=== PATIENT | male | born 1980 | race Two or more races ===

== ENCOUNTER → 2017-10-17 | Outpatient (CLI) | payer MEDICAID ==
[~2017-10-17] MED LIST: FLOMAX 0.4MG C0.4 MG PO; FLOMAX0.4 MG PO; MECLIZINE25 MG PO; NAPROSYN 500MG500 MG PO; NOMEDS; NORCO 325 MG-51 TAB PO; PERCOCET 5/3251 EACH PO; PHENERGAN 25MG.25 M1 PO; ROBAXIN-750750 MG PO; TRAMADOL 50MG T50 MG PO
[2017-10-17 18:03] LABS: HEMOGLOBIN 14.9 g/dL (14.1-18.0); LYMPH # 1.7 K/mm3 (0.7-4.5)
[2017-10-17 19:01] LABS: BUN 10 mg/dL (7-18); GFR (ESTIMATED) 108 ML/MIN (>60)
[2017-10-19 07:40] LABS: HBsAg Screen Negative (Negative); Hep A Ab, IgM Negative (Negative); Hep B Core Ab, IgM Negative (Negative); Hep C Virus Ab <0.1 (0.0-0.9)
== END ==
LOC: LAB 16:34
PROVIDERS: Nurse Practitioner Family
DX: R20.2 Paresthesia of skin (principal); J01.01 Acute recurrent maxillary sinusitis; Z00.00 Encounter for general adult medical examination without abnormal findings